=== PATIENT | male | born 1970 | race Caucasian/White ===

== ENCOUNTER 2018-11-30 15:23 | Emergency (ER) | payer BC, OTHER ==
[2018-11-30] MEDS ORDERED: Sodium Chloride 0.9% 10 ML Syringe FLUSH PRN (16:17)
[2018-11-30] MEDS ORDERED: Ampicillin/Sulbactam Na 3 GM Vial IV ONE (16:19)
[2018-11-30 17:15] LABS: CHLORIDE,CL 102 mmol/L (98-107); SODIUM,NA 139 mmol/L (136-145)
[2018-11-30 17:19] LABS: ANION GAP 14.6 mmol/L (10-20)
--- NOTE | 2018-12-01 07:23 | EDM.PDOC ---
ED HPI GENERAL MEDICAL PROBLEM - General Chief Complaint: Skin Complaint Time Seen by Provider: 11/30/18 15:23 Source of Information: Reports: Patient History Limitations: Reports: No Limitations - History of Present Illness INITIAL COMMENTS - FREE TEXT/NARRATIVE: PtMichelle presents to ER with complaints of erythema to nose and to area under R eye. States that he has had this for several days but it has gotten worse. denies any eye pain or irritation. No difficulty with rolling the eyes. He thinks that the cellulitis started in this nose from an "ingrown hair" he was attempting to pull out. No fever or chills. No chest pain or shortness of breath. Denies any headache. Onset Date: 11/28/18 Location: Reports: Face Quality: Reports: Burning - Related Data Allergies Allergy/AdvReac Type Severity Reaction Status Date / Time No Known Drug Allergies Allergy Other Verified 11/30/18 15:59 Home Meds: Home Meds . [No Known Home Meds] 04/05/14 [History] Past Medical History - Past Health History Medical/Surgical History: Denies Medical/Surgical History Cardiovascular History: Reports: High Cholesterol, Hypertension Social & Family History - Tobacco Use Smoking Status *Q: Unknown Ever Smoked ED ROS GENERAL - Review of Systems Review Of Systems: See Below Constitutional: Reports: No Symptoms HEENT: Reports: Other (erythema noted to nose extending to R maxillary area. No discharge noted. EOMI. No entrapment noted.) Respiratory: Reports: No Symptoms Cardiovascular: Reports: No Symptoms Endocrine: Reports: No Symptoms GI/Abdominal: Reports: No Symptoms : Reports: No Symptoms Musculoskeletal: Reports: No Symptoms Skin: Reports: Rash, Erythema Neurological: Reports: No Symptoms Psychiatric: Reports: No Symptoms Hematologic/Lymphatic: Reports: No Symptoms Immunologic: Reports: No Symptoms ED EXAM, SKIN/RASH Exam: See Below Exam Limited By: No Limitations General Appearance: Alert, WD/WN, No Apparent Distress Eye Exam: Bilateral Eye: EOMI, Normal Fundi, Normal Inspection, PERRL Ears: Normal External Exam, Normal Canal, Hearing Grossly Normal, Normal TMs Nose: Normal Mucosa, No Blood, Nasal Tenderness, Other (erythema across nose into R maxillary area) Throat/Mouth: Normal Inspection, Normal Lips, Normal Teeth, Normal Gums, Normal Oropharynx, Normal Voice, No Airway Compromise Head: Atraumatic, Normocephalic Neck: Normal Inspection, Supple, Non-Tender, Full Range of Motion Respiratory/Chest: No Respiratory Distress, Lungs Clear, Normal Breath Sounds, No Accessory Muscle Use, Chest Non-Tender Cardiovascular: Normal Peripheral Pulses, Regular Rate, Rhythm, No Edema, No Gallop, No JVD, No Murmur, No Rub Peripheral Pulses: 4+: Radial (R) Extremities: Normal Inspection, Normal Range of Motion, Non-Tender, No Pedal Edema, Normal Capillary Refill Neurological: Alert, Oriented, CN II-XII Intact, Normal Cognition, Normal Gait, Normal Reflexes, No Motor/Sensory Deficits Skin: Warm, Dry, Erythema (see above.) Course - Vital Signs Last Recorded V/S: Last Vital Signs Temp 37.2 C 11/30/18 15:30 Pulse 81 11/30/18 15:30 Resp 18 11/30/18 15:30 BP 104/54 L 11/30/18 15:30 Pulse Ox 96 11/30/18 15:30 - Orders/Labs/Meds Orders: Active Orders 24 hr Category Date Time Status Intake and Output [RC] QSHIFT Care 11/30/18 16:17 Active Peripheral IV Insertion Adult [OM.PC] Routine Oth 11/30/18 16:18 Ordered Labs: Laboratory Tests 11/30/18 11/30/18 Range/Units 16:45 16:45 WBC 8.0 (4.0-10.0) x10^3/uL RBC 5.04 (4.5-6.0) x10^6/uL Hgb 15.4 (14.0-18.0) g/dL Hct 45.6 (40.0-52.0) % MCV 90.5 (78.0-93.0) fL MCH 30.6 (26.0-32.0) pg MCHC 33.8 (32.0-36.0) g/dL RDW Coeff of Victor Manuel 13.3 (10.0-15.0) % Plt Count 252 (130-400) x10^3/uL Neut % (Auto) 66.8 (50.0-80.0) % Lymph % (Auto) 20.0 L (25.0-50.0) % [place] % (Auto) 11.6 H (2.0-11.0) % Eos % (Auto) 1.3 (0.0-4.0) % Baso % (Auto) 0.3 (0.2-1.2) % Sodium 139 (136-145) mmol/L Potassium 3.6 (3.5-5.1) mmol/L Chloride 102 (98-107) mmol/L Carbon Dioxide 26 (21-32) mmol/L Anion Gap 14.6 (10-20) mmol/L BUN 16 (7-18) mg/dL Creatinine 0.9 (0.70-1.30) mg/dL Est Cr Clr Drug Dosing TNP Estimated GFR (MDRD) > 60 Glucose 150 H (74-106) mg/dL Calcium 8.7 (8.5-10.1) mg/dL Corrected Calcium 9.42 (8.5-10.1) mg/dL Total Bilirubin 0.4 (0.2-1.0) mg/dL AST 29 (15-37) U/L ALT 46 (16-63) U/L Alkaline Phosphatase 101 (46-116) U/L C-Reactive Protein 5.2 H (<=0.9) mg/dL Total Protein 7.1 (6.4-8.2) g/dL Albumin 3.1 L (3.4-5.0) g/dL Globulin 4.0 Albumin/Globulin Ratio 0.78 Meds: Medications Discontinued Medications Generic Name Dose Route Start Last Admin Trade Name Freq PRN Reason Stop Dose Admin Ampicillin Sodium/Sulbactam Sodium 3 gm 11/30/18 16:19 11/30/18 16:33 Unasyn IV 11/30/18 16:20 3 gm ONETIME ONE Administration Sodium Chloride 10 ml 11/30/18 16:17 11/30/18 16:33 Saline Flush FLUSH 10 ml ASDIRECTED PRN Administration Keep Vein Open Departure - Departure Time of Disposition: 17:33 Disposition: Home, Self-Care 01 Condition: Good Clinical Impression: Cellulitis - Discharge Information Instructions: Cellulitis, Adult Referrals: Timothy Suarez MD [Primary Care Provider] - Forms: ED Department Discharge Additional Instructions: Augmentin 875mg twice daily for 10 days Return if fever, chills, inability to roll or move eye. Follow-up in clinic in 5-7 days for recheck. - My Orders Last 24 Hours: My Active Orders 11/30/18 16:17 Intake and Output [RC] QSHIFT 11/30/18 16:18 Peripheral IV Insertion Adult [OM.PC] Routine - Assessment/Plan Last 24 Hours: My Active Orders 11/30/18 16:17 Intake and Output [RC] QSHIFT 11/30/18 16:18 Peripheral IV Insertion Adult [OM.PC] Routine Plan: He was given a dose of Unasyn in ER. Augmentin 875mg twice daily for 10 days Return if fever, chills, inability to roll or move eye. Follow-up in clinic in 5-7 days for recheck.
== END 2018-11-30 17:33 | disposition home or self-care (01) ==
LOC: VM.ED 15:23
DX: L03.211 Cellulitis of face (principal); E78.00 Pure hypercholesterolemia, unspecified; I10 Essential (primary) hypertension
CPT/HCPCS: 36415; 80053; 85025; 86140; 96374; 99283; J0295

== ENCOUNTER 2021-07-02 21:53 | Inpatient (IN) | payer OTHER ==
[2021-07-02] MEDS ORDERED: Aspirin 81 MG Tab.Chew PO ONE (22:00)
[2021-07-02] MEDS: Nitroglycerin 0.4 MG Tab.SL SL PRN ×2 (22:11→22:21)
[2021-07-02] MEDS ORDERED: Sodium Chloride 0.9% 1,000 ML IV SCH (22:15)
--- NOTE | 2021-07-02 22:22 | EDM.PDOC ---
ED HPI GENERAL MEDICAL PROBLEM - General Chief Complaint: Chest Pain Stated Complaint: CHEST PAIN Time Seen by Provider: 07/02/21 22:00 Source of Information: Reports: Patient, Family History Limitations: Reports: No Limitations - History of Present Illness INITIAL COMMENTS - FREE TEXT/NARRATIVE: Patient presents to the ED with chest pain that started an hour prior to arrival. He states it awoke him and is substernal, sharp pressure and 8/10. NO diaphoresis or nausea. Did not take anything for it and came to the hospital. Has a history of cardiomyopathy with global hypokinesis and low ejection fraction He was last seen in 2018, and is scheduled to be seen again. States he has been taking his medications without fail. No recent travel. no recent illness. Has not had covid, Did receive the second of his [employer] vaccines in the last several days. No denies any chest trauma He is a daily smoker and frequent user of marijuana, denies any other drug use. sometimes drinker. 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 He rested but the pain took 1 hour to resolve. Did not take anything for it. Harvey well until this evening. Onset: Today Onset Time: 21:00 Duration: Hour(s): Location: Reports: Chest Quality: Reports: Pressure, Sharp Severity: Moderate Improves with: Reports: Other (deep breath) Context: Reports: Other (sleeping) Associated Symptoms: Reports: Diaphoresis Chest Pain Score (Numeric/FACES): 7 - Related Data Allergies Allergy/AdvReac Type Severity Reaction Status Date / Time No Known Drug Allergies Allergy Other Verified 11/30/18 15:59 Home Meds: Home Meds . [No Known Home Meds] 04/05/14 [History] Past Medical History - Past Health History Medical/Surgical History: Denies Medical/Surgical History Cardiovascular History: Reports: Cardiomyopathy, Heart Failure, High Cholesterol, Hypertension, Other (See Below) (low ejection fraction ( 20%) and global hypokinesis on echocardiogram 2017) - Past Surgical History Cardiovascular Surgical History: Reports: Other (See Below) (heart cath 2015, no stents placed) Musculoskeletal Surgical History: Reports: ORIF (right ankle) Social & Family History - Tobacco Use Tobacco Use Status *Q: Current Every Day Tobacco User Tobacco Use Within Last Twelve Months: Cigarettes - Alcohol Use Alcohol Use History: Yes Alcohol Use Frequency: Socially - Recreational Drug Use Recreational Drug Use: Yes Drug Use in Last 12 Months: Yes Recreational Drug Type: Reports: Marijuana/Hashish Recreational Drug Use Frequency: Weekly ED ROS GENERAL - Review of Systems Review Of Systems: See Below Constitutional: Reports: Diaphoresis. Denies: Fever, Chills, Malaise, Decreased Appetite HEENT: Reports: No Symptoms. Denies: Hearing Loss, Rhinitis, Sinus Problem, Throat Pain Respiratory: Reports: No Symptoms. Denies: Shortness of Breath, Wheezing, Pleuritic Chest Pain Cardiovascular: Reports: Chest Pain. Denies: Blood Pressure Problem, Claudication, Dyspnea on Exertion, Edema GI/Abdominal: Reports: No Symptoms. Denies: Abdominal Pain, Black Stool, Diarrhea, Flatus, Nausea, Vomiting : Reports: No Symptoms. Denies: Dysuria, Frequency Musculoskeletal: Reports: No Symptoms Skin: Reports: No Symptoms. Denies: Rash Neurological: Reports: No Symptoms. Denies: Confusion Psychiatric: Reports: No Symptoms ED EXAM, GENERAL - Physical Exam Exam: See Below Exam Limited By: No Limitations General Appearance: Alert, WD/WN, Mild Distress Eye Exam: Bilateral Eye: EOMI, Normal Inspection, PERRL Ears: Normal External Exam Nose: Normal Inspection, Normal Mucosa, No Blood Throat/Mouth: Normal Inspection, Normal Lips, Normal Teeth, Normal Voice, No Airway Compromise Head: Atraumatic Neck: Normal Inspection Respiratory/Chest: No Respiratory Distress, Lungs Clear, Normal Breath Sounds, No Accessory Muscle Use, Chest Non-Tender Cardiovascular: Tachycardia, Other (normal rhythm) GI/Abdominal: Normal Bowel Sounds, Soft, Non-Tender Extremities: Normal Inspection, Normal Range of Motion, Non-Tender, No Pedal Edema Neurological: Alert, Oriented, CN II-XII Intact Skin Exam: Diaphoretic #1 Interpretation EKG Date: 07/02/21 Time: 21:48 Rhythm: NSR Rate (Beats/Min): 107 [place]: Normal P-Wave: Present QRS: Normal ST-T: Other (nonspecific T in I, AVL V5-6 with slight depression) Comparison: NA - No Prior EKG EKG Interpretation Comments: LVH #2 Interpretation EKG Date: 07/02/21 Time: 23:05 Rhythm: NSR Rate (Beats/Min): 108 [place]: Normal P-Wave: Present QRS: Normal ST-T: Other (unchanged from previous) Comparison: Change From Previous EKG (incomplete left bundle branch block) #3 Interpretation EKG Date: 07/03/21 Time: 00:23 Rhythm: NSR Rate (Beats/Min): 108 [place]: Normal P-Wave: Present Comparison: No Change Course - Vital Signs Last Recorded V/S: Last Vital Signs Temp 35.6 C L 07/02/21 21:55 Pulse 103 H 07/02/21 21:55 Resp 22 H 07/02/21 21:55 BP 135/105 H 07/02/21 22:21 Pulse Ox 100 07/02/21 21:55 - Orders/Labs/Meds Orders: Active Orders 24 hr Category Date Time Status Admission Status [Patient Status] [ADT] Routine ADT 07/03/21 01:09 Active Cardiac Monitoring [RC] . DIRECTED Care 07/02/21 22:00 Active EKG 12 Lead [EKG Documentation Completion] [RC] STAT Care 07/02/21 23:09 Active EKG 12 Lead [EKG Documentation Completion] [RC] STAT Care 07/03/21 00:15 Active EKG Documentation Completion [RC] STAT Care 07/02/21 22:00 Active Chest 1V Frontal [CR] Stat Exams 07/02/21 22:31 Ordered Heparin Sodium/0.45% NaCl [Heparin 25,000 Units in 1/2 Med 07/02/21 23:00 Active NS 500 ML] 25,000 units in 500 ml IV TITRATE Morphine Med 07/02/21 23:10 Active 4 mg IVPUSH Q2H PRN Nitroglycerin [Nitrostat] Med 07/02/21 22:00 Active 0.4 mg SL Q5M PRN Nitroglycerin/D5W [Nitroglycerin 25 MG/D5W 250 ML] Med 07/02/21 23:00 Active 25 mg in 250 ml IV TITRATE Sodium Chloride 0.9% [Normal Saline] 1,000 ml Med 07/02/21 22:15 Active IV ASDIRECTED Medication Orders Sodium Chloride (Normal Saline) 1,000 mls @ 999 mls/hr IV ASDIRECTED MAURICIO Last Admin: 07/02/21 22:15 Dose: 999 mls/hr Documented by: ANU Nitroglycerin/Dextrose (Nitroglycerin 25 Mg/D5w 250 Ml) 25 mg in 250 mls @ 6 mls/hr IV TITRATE MAURICIO; Protocol Last Admin: 07/02/21 23:01 Dose: 10 mcg/min, 6 mls/hr Documented by: ANU Heparin Sodium/Sodium Chloride (Heparin 25,000 Units In 1/2 Ns 500 Ml) 25,000 units in 500 mls @ 20 mls/hr IV TITRATE MAURICIO; Protocol Last Admin: 07/02/21 23:33 Dose: 1,000 units/hr, 20 mls/hr Documented by: ANU Cosigned by: LORENZO Morphine Sulfate (Morphine 4 Mg/Ml Syringe) 4 mg IVPUSH Q2H PRN PRN Reason: Pain Last Admin: 07/02/21 23:24 Dose: 4 mg Documented by: ANU Nitroglycerin (Nitroglycerin 0.4 Mg Tab.Sl) 0.4 mg SL Q5M PRN PRN Reason: Chest Pain Stop: 07/03/21 22:00 Last Admin: 07/02/21 22:21 Dose: 0.4 mg Documented by: Admin: 07/02/21 22:11 Dose: 0.4 mg Documented by: ANU Labs: Laboratory Tests 07/02/21 07/02/21 07/02/21 Range/Units 22:10 22:10 22:10 WBC 11.7 H (4.0-10.0) x10^3/uL RBC 5.75 (4.5-6.0) x10^6/uL Hgb 18.0 (14.0-18.0) g/dL Hct 50.8 (40.0-52.0) % MCV 88.3 (78.0-93.0) fL MCH 31.3 (26.0-32.0) pg MCHC 35.4 (32.0-36.0) g/dL RDW Coeff of Victor Manuel 14.1 (10.0-15.0) % Plt Count 308 (130-400) x10^3/uL Immature Gran % (Auto) 0.20 (0.00-0.43) % Neut % (Auto) 69.1 (50.0-80.0) % Lymph % (Auto) 23.2 L (25.0-50.0) % [place] % (Auto) 6.3 (2.0-11.0) % Eos % (Auto) 1.0 (0.0-4.0) % Baso % (Auto) 0.2 (0.2-1.2) % Neut # (Auto) 8.1 H (1.8-7.7) x10^3/uL Lymph # (Auto) 2.7 (1.0-4.8) x10^3/uL [place] # (Auto) 0.7 (0.0-0.8) x10^3/uL Eos # (Auto) 0.1 (0.0-0.5) x10^3/uL Baso # (Auto) 0.0 (0.0-0.2) x10^3/uL Immature Gran # (Auto) 0.02 (0.00-0.07) x10^3/uL PT (9.9-12.5) SEC INR (2.0-3.5) APTT (25.6-32.8) SEC D-Dimer, Quantitative 0.36 (<=0.58) mg/LFEU Sodium 139 (136-145) mmol/L Potassium 4.6 (3.5-5.1) mmol/L Chloride 104 (98-107) mmol/L Carbon Dioxide 29 (21-32) mmol/L Anion Gap 10.6 (5-15) mmol/L BUN 18 (7-18) mg/dL Creatinine 1.1 (0.70-1.30) mg/dL Est Cr Clr Drug Dosing TNP Estimated GFR (MDRD) > 60 Glucose 130 H (70-99) mg/dL Calcium 8.7 (8.5-10.1) mg/dL Corrected Calcium 9.3 (8.5-10.1) mg/dL Total Bilirubin 0.4 (0.2-1.0) mg/dL AST 35 (15-37) U/L ALT 48 (16-63) U/L Alkaline Phosphatase 96 (46-116) U/L Troponin I High Sens 226 H* (<=76) ng/L NT-Pro-B Natriuret Pep 774 H (<=125) pg/mL Total Protein 7.2 (6.4-8.2) g/dL Albumin 3.2 L (3.4-5.0) g/dL Globulin 4.0 Albumin/Globulin Ratio 0.80 SARS CoV-2 RNA Rapid MARAL (NEGATIVE) 07/02/21 07/02/21 07/02/21 Range/Units 22:10 22:10 23:25 WBC (4.0-10.0) x10^3/uL RBC (4.5-6.0) x10^6/uL Hgb (14.0-18.0) g/dL Hct (40.0-52.0) % MCV (78.0-93.0) fL MCH (26.0-32.0) pg MCHC (32.0-36.0) g/dL RDW Coeff of Victor Manuel (10.0-15.0) % Plt Count (130-400) x10^3/uL Immature Gran % (Auto) (0.00-0.43) % Neut % (Auto) (50.0-80.0) % Lymph % (Auto) (25.0-50.0) % [place] % (Auto) (2.0-11.0) % Eos % (Auto) (0.0-4.0) % Baso % (Auto) (0.2-1.2) % Neut # (Auto) (1.8-7.7) x10^3/uL Lymph # (Auto) (1.0-4.8) x10^3/uL [place] # (Auto) (0.0-0.8) x10^3/uL Eos # (Auto) (0.0-0.5) x10^3/uL Baso # (Auto) (0.0-0.2) x10^3/uL Immature Gran # (Auto) (0.00-0.07) x10^3/uL PT 11.0 (9.9-12.5) SEC INR 1.0 L (2.0-3.5) APTT 24.4 L (25.6-32.8) SEC D-Dimer, Quantitative (<=0.58) mg/LFEU Sodium (136-145) mmol/L Potassium (3.5-5.1) mmol/L Chloride (98-107) mmol/L Carbon Dioxide (21-32) mmol/L Anion Gap (5-15) mmol/L BUN (7-18) mg/dL Creatinine (0.70-1.30) mg/dL Est Cr Clr Drug Dosing Estimated GFR (MDRD) Glucose (70-99) mg/dL Calcium (8.5-10.1) mg/dL Corrected Calcium (8.5-10.1) mg/dL Total Bilirubin (0.2-1.0) mg/dL AST (15-37) U/L ALT (16-63) U/L Alkaline Phosphatase (46-116) U/L Troponin I High Sens (<=76) ng/L NT-Pro-B Natriuret Pep (<=125) pg/mL Total Protein (6.4-8.2) g/dL Albumin (3.4-5.0) g/dL Globulin Albumin/Globulin Ratio SARS CoV-2 RNA Rapid MARAL Negative (NEGATIVE) 07/03/21 Range/Units 00:28 WBC (4.0-10.0) x10^3/uL RBC (4.5-6.0) x10^6/uL Hgb (14.0-18.0) g/dL Hct (40.0-52.0) % MCV (78.0-93.0) fL MCH (26.0-32.0) pg MCHC (32.0-36.0) g/dL RDW Coeff of Victor Manuel (10.0-15.0) % Plt Count (130-400) x10^3/uL Immature Gran % (Auto) (0.00-0.43) % Neut % (Auto) (50.0-80.0) % Lymph % (Auto) (25.0-50.0) % [place] % (Auto) (2.0-11.0) % Eos % (Auto) (0.0-4.0) % Baso % (Auto) (0.2-1.2) % Neut # (Auto) (1.8-7.7) x10^3/uL Lymph # (Auto) (1.0-4.8) x10^3/uL [place] # (Auto) (0.0-0.8) x10^3/uL Eos # (Auto) (0.0-0.5) x10^3/uL Baso # (Auto) (0.0-0.2) x10^3/uL Immature Gran # (Auto) (0.00-0.07) x10^3/uL PT (9.9-12.5) SEC INR (2.0-3.5) APTT (25.6-32.8) SEC D-Dimer, Quantitative (<=0.58) mg/LFEU Sodium (136-145) mmol/L Potassium (3.5-5.1) mmol/L Chloride (98-107) mmol/L Carbon Dioxide (21-32) mmol/L Anion Gap (5-15) mmol/L BUN (7-18) mg/dL Creatinine (0.70-1.30) mg/dL Est Cr Clr Drug Dosing Estimated GFR (MDRD) Glucose (70-99) mg/dL Calcium (8.5-10.1) mg/dL Corrected Calcium (8.5-10.1) mg/dL Total Bilirubin (0.2-1.0) mg/dL AST (15-37) U/L ALT (16-63) U/L Alkaline Phosphatase (46-116) U/L Troponin I High Sens 4851 H* (<=76) ng/L NT-Pro-B Natriuret Pep (<=125) pg/mL Total Protein (6.4-8.2) g/dL Albumin (3.4-5.0) g/dL Globulin Albumin/Globulin Ratio SARS CoV-2 RNA Rapid MARAL (NEGATIVE) Meds: Medications Generic Name Dose Route Start Last Admin Trade Name Codyq PRN Reason Stop Dose Admin Sodium Chloride 1,000 mls @ 999 mls/hr 07/02/21 22:15 07/02/21 22:15 Normal Saline IV 999 mls/hr ASDIRECTED MAURICIO Administration Nitroglycerin/Dextrose 25 mg in 250 mls @ 6 mls/hr 07/02/21 23:00 07/02/21 23:01 Nitroglycerin 25 Mg/D5w 250 Ml IV 10 mcg/min TITRATE MAURICIO 6 mls/hr Administration Protocol 10 MCG/MIN Heparin Sodium/Sodium Chloride 25,000 units in 500 mls @ 20 mls/hr 07/02/21 23:00 07/02/21 23:33 Heparin 25,000 Units In 1/2 Ns 500 Ml IV 1,000 units/hr TITRATE MAURICIO 20 mls/hr Administration Protocol 1,000 UNITS/HR Morphine Sulfate 4 mg 07/02/21 23:10 07/02/21 23:24 Morphine 4 Mg/Ml Syringe IVPUSH 4 mg Q2H PRN Administration Pain Nitroglycerin 0.4 mg 07/02/21 22:00 07/02/21 22:21 Nitroglycerin 0.4 Mg Tab.Sl SL 07/03/21 22:00 0.4 mg Q5M PRN Administration Chest Pain Discontinued Medications Generic Name Dose Route Start Last Admin Trade Name Vladimri PRN Reason Stop Dose Admin Aspirin 324 mg 07/02/21 22:00 07/02/21 22:05 Aspirin 81 Mg Tab.Chew PO 07/02/21 22:01 324 mg ONETIME ONE Administration Heparin Sodium (Porcine) 4,000 units 07/02/21 22:56 07/02/21 23:11 Heparin Sodium 5,000 Units/Ml Vial IVPUSH 07/02/21 22:57 4,000 units .BOLUS ONE Administration - Radiology Interpretation Free Text/Narrative:: chest x-ray no acute findings interpreted by radiology - Re-Assessments/Exams Free Text/Narrative Re-Assessment/Exam: 07/02/21 22:40 Patient has a cardiac history with active chest pain and diaphoresis. Pain had happened two days ago also. Pain at it's worse 8/10, now 5/10. IV placed, normal saline bolus, aspirin 324 mg chewed, nitro glycerin 0.4 mg sublingual take pain to 2/10. Feeling better. Blood pressure still stable, but states it usually runs 110/90. Second nitro does not help pain, but stays at 2/10, blood pressure decreased. Portable chest reveals increased intravascular markings consistent with CHF> Patient states he has been getting good output from his 40 g of furosemide daily. Does not do daily weights, but denies overall weight change and no peripheral edema. 07/02/21 22:46 reviewed [facility] chart, has not been seen since 2018. last echo cardiogram in 2018 was with global hypokinesis and en ejection fracture of 20% 07/02/21 22:53 chest pain is back to 8/10, nitroglycerin drip will be started, awaiting labs. Minor EKG changes, no stemi 07/02/21 23:10 call to [facility], no bed unless STEMI, call to [facility], faxed EKG with cardiology to look at and possible acceptance. patient continues to be diaphoretic, active chest pain, nitro is infusing, heparin bolus given. morphine offered Is s Code level 1 07/02/21 23:34 call to [facility] after cardiology will not accept patient. NO beds in the State unless a STEMI. repeat ekg without STEMi, morphing into a incomplete left bundle branch block. Pain is controlled on 10 barbara of nitroglycerin and 4 mg of morphine IVP. down to the 2. repeat trop and EKG at 00:15 07/03/21 00:42 call received from [facility] in [place], Dr. Wagner, hospitalist added to wait list for PCU bed. They do not have a bed for him and feel he requires more than a medical bed., 07/03/21 01:33 Patient is feeling and looking much better . TRoponin marked elevated at 4800. Will admit , continue nitro and heparin drips. morphine as needed for pain, Oxygen to maintains sats especially with sleeping. Needs cardiology follow up. Departure - Departure Time of Disposition: 01:35 Disposition: Admitted As Inpatient 68 Clinical Impression: Acute myocardial infarction, CHF (congestive heart failure), Cardiomyopathy Referrals: PCP,None [Primary Care Provider] - Forms: ED Department Discharge Sepsis Event Note (ED) - Focused Exam Vital Signs: Vital Signs Temp Pulse Resp BP BP Pulse Ox 07/02/21 22:21 135/105 H 07/02/21 22:11 147/111 H 07/02/21 21:55 35.6 C L 103 H 22 H 102/71 100 - My Orders Last 24 Hours: My Active Orders 07/02/21 22:00 Cardiac Monitoring [RC] . DIRECTED EKG Documentation Completion [RC] STAT Nitroglycerin [Nitrostat] 0.4 mg SL Q5M PRN 07/02/21 22:15 Sodium Chloride 0.9% [Normal Saline] 1,000 ml IV ASDIRECTED 07/02/21 22:31 Chest 1V Frontal [CR] Stat 07/02/21 23:00 Heparin Sodium/0.45% NaCl [Heparin 25,000 Units in 1/2 NS 500 ML] 25,000 units in 500 ml IV TITRATE Nitroglycerin/D5W [Nitroglycerin 25 MG/D5W 250 ML] 25 mg in 250 ml IV TITRATE 07/02/21 23:09 EKG 12 Lead [EKG Documentation Completion] [RC] STAT 07/02/21 23:10 Morphine 4 mg IVPUSH Q2H PRN 07/03/21 00:15 EKG 12 Lead [EKG Documentation Completion] [RC] STAT 07/03/21 01:09 Admission Status [Patient Status] [ADT] Routine - Assessment/Plan Last 24 Hours: My Active Orders 07/02/21 22:00 Cardiac Monitoring [RC] . DIRECTED EKG Documentation Completion [RC] STAT Nitroglycerin [Nitrostat] 0.4 mg SL Q5M PRN 07/02/21 22:15 Sodium Chloride 0.9% [Normal Saline] 1,000 ml IV ASDIRECTED 07/02/21 22:31 Chest 1V Frontal [CR] Stat 07/02/21 23:00 Heparin Sodium/0.45% NaCl [Heparin 25,000 Units in 1/2 NS 500 ML] 25,000 units in 500 ml IV TITRATE Nitroglycerin/D5W [Nitroglycerin 25 MG/D5W 250 ML] 25 mg in 250 ml IV TITRATE 07/02/21 23:09 EKG 12 Lead [EKG Documentation Completion] [RC] STAT 07/02/21 23:10 Morphine 4 mg IVPUSH Q2H PRN 07/03/21 00:15 EKG 12 Lead [EKG Documentation Completion] [RC] STAT 07/03/21 01:09 Admission Status [Patient Status] [ADT] Routine
[2021-07-02 22:52] LABS: CHLORIDE,CL 104 mmol/L (98-107); SODIUM,NA 139 mmol/L (136-145)
[2021-07-02 22:55] LABS: ANION GAP 10.6 mmol/L (5-15)
[2021-07-02] MEDS ORDERED: Heparin Sodium 5,000 Units/ML Vial IVPUSH ONE (22:56)
[2021-07-02] MEDS ORDERED: Nitroglycerin/D5W 25 MG/250 ML BOTTLE IV SCH (23:00)
[2021-07-02] MEDS ORDERED: Morphine 4 MG/ML Syringe IVPUSH PRN (23:10)
[2021-07-02] MEDS: Heparin Sodium/0.45% NaCl 25,000 UNITS/500 ML BAG IV SCH (23:33)
[2021-07-03] MEDS ORDERED: Acetaminophen 325 MG Tab PO PRN (02:15)
[2021-07-03] MEDS ORDERED: Ondansetron 4 MG/2 ML SDV IV PRN (02:15)
[2021-07-03] MEDS ORDERED: Ondansetron 4 MG Tab.DIS PO PRN (02:15)
[2021-07-03] MEDS ORDERED: Docusate Sodium 100 MG Cap PO PRN (02:15)
[2021-07-03] MEDS ORDERED: Morphine 4 MG/ML Syringe IVPUSH PRN (02:35)
[2021-07-03] MEDS: Nicotine 14 MG/24 Hr Patch TRDERM SCH (08:20)
[2021-07-03] MEDS: Carvedilol 25 MG Tab PO SCH ×2 (08:20→18:59)
[2021-07-03] MEDS: ENTRESTO PO SCH ×2 (08:20→20:17)
[2021-07-03] MEDS: Furosemide 40 MG Tab PO SCH (08:20)
[2021-07-03] MEDS: Heparin Sodium 5,000 Units/ML Vial IVPUSH PRN ×3 (10:11→20:09)
--- NOTE | 2021-07-03 10:28 | PCM.PN ---
- General Info Date of Service: 07/03/21 Admission Dx/Problem (Free Text): NSTEMI Subjective Update: Patient was admitted overnight for NSTEMI with a history of cardiomyopathy with global hypokinesis and low ejection fraction. He came in last evening with this. Is now without pain . Has had increased troponins, on a nitroglycerin drip and heparin drip with morphine IVP for pain. Awaiting transfer to tertiary facility for cardiac consult. 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 medical management at this point, - Review of Systems General: Reports: No Symptoms, Other (patient does have intermittant diaphoresis not associated) HEENT: Reports: No Symptoms Pulmonary: Reports: No Symptoms Cardiovascular: Reports: Chest Pain (resolved this morning now). Denies: Dyspnea on Exertion, Orthopnea, Edema Gastrointestinal: Reports: No Symptoms Genitourinary: Reports: No Symptoms Musculoskeletal: Reports: No Symptoms Skin: Reports: No Symptoms Neurological: Reports: No Symptoms Psychiatric: Reports: No Symptoms - Patient Data Vitals - Most Recent: Last Vital Signs Temp 36.5 C 07/03/21 02:08 Pulse 101 H 07/03/21 08:20 Resp 18 07/03/21 06:00 BP 139/102 H 07/03/21 08:20 Pulse Ox 92 L 07/03/21 06:00 note, patient has a blood pressure usually of 110/90 and states he has tachycardia at baseline of 100 Weight - Most Recent: 127.006 kg I&O - Last 24 Hours: Intake & Output 07/02/21 07/03/21 07/03/21 22:59 06:59 14:59 Intake Total 300 120 Balance 300 120 Imaging Impressions - Last 24 Hours: negative one view chest x-ray in ED Lab Results Last 24 Hours: Laboratory Results - last 24 hr 07/02/21 07/02/21 07/02/21 Range/Units 22:10 22:10 22:10 WBC 11.7 H (4.0-10.0) x10^3/uL RBC 5.75 (4.5-6.0) x10^6/uL Hgb 18.0 (14.0-18.0) g/dL Hct 50.8 (40.0-52.0) % MCV 88.3 (78.0-93.0) fL MCH 31.3 (26.0-32.0) pg MCHC 35.4 (32.0-36.0) g/dL RDW Coeff of Victor Manuel 14.1 (10.0-15.0) % Plt Count 308 (130-400) x10^3/uL Immature Gran % (Auto) 0.20 (0.00-0.43) % Neut % (Auto) 69.1 (50.0-80.0) % Lymph % (Auto) 23.2 L (25.0-50.0) % Sac % (Auto) 6.3 (2.0-11.0) % Eos % (Auto) 1.0 (0.0-4.0) % Baso % (Auto) 0.2 (0.2-1.2) % Neut # (Auto) 8.1 H (1.8-7.7) x10^3/uL Lymph # (Auto) 2.7 (1.0-4.8) x10^3/uL Sac # (Auto) 0.7 (0.0-0.8) x10^3/uL Eos # (Auto) 0.1 (0.0-0.5) x10^3/uL Baso # (Auto) 0.0 (0.0-0.2) x10^3/uL Immature Gran # (Auto) 0.02 (0.00-0.07) x10^3/uL PT (9.9-12.5) SEC INR (2.0-3.5) APTT (25.6-32.8) SEC D-Dimer, Quantitative 0.36 (<=0.58) mg/LFEU Sodium 139 (136-145) mmol/L Potassium 4.6 (3.5-5.1) mmol/L Chloride 104 (98-107) mmol/L Carbon Dioxide 29 (21-32) mmol/L Anion Gap 10.6 (5-15) mmol/L BUN 18 (7-18) mg/dL Creatinine 1.1 (0.70-1.30) mg/dL Est Cr Clr Drug Dosing TNP Estimated GFR (MDRD) > 60 Glucose 130 H (70-99) mg/dL Calcium 8.7 (8.5-10.1) mg/dL Corrected Calcium 9.3 (8.5-10.1) mg/dL Total Bilirubin 0.4 (0.2-1.0) mg/dL AST 35 (15-37) U/L ALT 48 (16-63) U/L Alkaline Phosphatase 96 (46-116) U/L Troponin I High Sens 226 H* (<=76) ng/L NT-Pro-B Natriuret Pep 774 H (<=125) pg/mL Total Protein 7.2 (6.4-8.2) g/dL Albumin 3.2 L (3.4-5.0) g/dL Globulin 4.0 Albumin/Globulin Ratio 0.80 SARS CoV-2 RNA Rapid MARAL (NEGATIVE) 07/02/21 07/02/21 07/02/21 Range/Units 22:10 22:10 23:25 WBC (4.0-10.0) x10^3/uL RBC (4.5-6.0) x10^6/uL Hgb (14.0-18.0) g/dL Hct (40.0-52.0) % MCV (78.0-93.0) fL MCH (26.0-32.0) pg MCHC (32.0-36.0) g/dL RDW Coeff of Victor Manuel (10.0-15.0) % Plt Count (130-400) x10^3/uL Immature Gran % (Auto) (0.00-0.43) % Neut % (Auto) (50.0-80.0) % Lymph % (Auto) (25.0-50.0) % Sac % (Auto) (2.0-11.0) % Eos % (Auto) (0.0-4.0) % Baso % (Auto) (0.2-1.2) % Neut # (Auto) (1.8-7.7) x10^3/uL Lymph # (Auto) (1.0-4.8) x10^3/uL Sac # (Auto) (0.0-0.8) x10^3/uL Eos # (Auto) (0.0-0.5) x10^3/uL Baso # (Auto) (0.0-0.2) x10^3/uL Immature Gran # (Auto) (0.00-0.07) x10^3/uL PT 11.0 (9.9-12.5) SEC INR 1.0 L (2.0-3.5) APTT 24.4 L (25.6-32.8) SEC D-Dimer, Quantitative (<=0.58) mg/LFEU Sodium (136-145) mmol/L Potassium (3.5-5.1) mmol/L Chloride (98-107) mmol/L Carbon Dioxide (21-32) mmol/L Anion Gap (5-15) mmol/L BUN (7-18) mg/dL Creatinine (0.70-1.30) mg/dL Est Cr Clr Drug Dosing Estimated GFR (MDRD) Glucose (70-99) mg/dL Calcium (8.5-10.1) mg/dL Corrected Calcium (8.5-10.1) mg/dL Total Bilirubin (0.2-1.0) mg/dL AST (15-37) U/L ALT (16-63) U/L Alkaline Phosphatase (46-116) U/L Troponin I High Sens (<=76) ng/L NT-Pro-B Natriuret Pep (<=125) pg/mL Total Protein (6.4-8.2) g/dL Albumin (3.4-5.0) g/dL Globulin Albumin/Globulin Ratio SARS CoV-2 RNA Rapid MARAL Negative (NEGATIVE) 07/03/21 07/03/21 07/03/21 Range/Units 00:28 06:45 06:45 WBC 10.1 H (4.0-10.0) x10^3/uL RBC 5.49 (4.5-6.0) x10^6/uL Hgb 16.9 (14.0-18.0) g/dL Hct 48.2 (40.0-52.0) % MCV 87.8 (78.0-93.0) fL MCH 30.8 (26.0-32.0) pg MCHC 35.1 (32.0-36.0) g/dL RDW Coeff of Victor Manuel 14.3 (10.0-15.0) % Plt Count 276 (130-400) x10^3/uL Immature Gran % (Auto) (0.00-0.43) % Neut % (Auto) (50.0-80.0) % Lymph % (Auto) (25.0-50.0) % Sac % (Auto) (2.0-11.0) % Eos % (Auto) (0.0-4.0) % Baso % (Auto) (0.2-1.2) % Neut # (Auto) (1.8-7.7) x10^3/uL Lymph # (Auto) (1.0-4.8) x10^3/uL Sac # (Auto) (0.0-0.8) x10^3/uL Eos # (Auto) (0.0-0.5) x10^3/uL Baso # (Auto) (0.0-0.2) x10^3/uL Immature Gran # (Auto) (0.00-0.07) x10^3/uL PT (9.9-12.5) SEC INR (2.0-3.5) APTT (25.6-32.8) SEC D-Dimer, Quantitative (<=0.58) mg/LFEU Sodium (136-145) mmol/L Potassium (3.5-5.1) mmol/L Chloride (98-107) mmol/L Carbon Dioxide (21-32) mmol/L Anion Gap (5-15) mmol/L BUN (7-18) mg/dL Creatinine (0.70-1.30) mg/dL Est Cr Clr Drug Dosing Estimated GFR (MDRD) Glucose (70-99) mg/dL Calcium (8.5-10.1) mg/dL Corrected Calcium (8.5-10.1) mg/dL Total Bilirubin (0.2-1.0) mg/dL AST (15-37) U/L ALT (16-63) U/L Alkaline Phosphatase (46-116) U/L Troponin I High Sens 4851 H* 75461 H* (<=76) ng/L NT-Pro-B Natriuret Pep (<=125) pg/mL Total Protein (6.4-8.2) g/dL Albumin (3.4-5.0) g/dL Globulin Albumin/Globulin Ratio SARS CoV-2 RNA Rapid MARAL (NEGATIVE) 07/03/21 Range/Units 08:50 WBC (4.0-10.0) x10^3/uL RBC (4.5-6.0) x10^6/uL Hgb (14.0-18.0) g/dL Hct (40.0-52.0) % MCV (78.0-93.0) fL MCH (26.0-32.0) pg MCHC (32.0-36.0) g/dL RDW Coeff of Victor Manuel (10.0-15.0) % Plt Count (130-400) x10^3/uL Immature Gran % (Auto) (0.00-0.43) % Neut % (Auto) (50.0-80.0) % Lymph % (Auto) (25.0-50.0) % Sac % (Auto) (2.0-11.0) % Eos % (Auto) (0.0-4.0) % Baso % (Auto) (0.2-1.2) % Neut # (Auto) (1.8-7.7) x10^3/uL Lymph # (Auto) (1.0-4.8) x10^3/uL Sac # (Auto) (0.0-0.8) x10^3/uL Eos # (Auto) (0.0-0.5) x10^3/uL Baso # (Auto) (0.0-0.2) x10^3/uL Immature Gran # (Auto) (0.00-0.07) x10^3/uL PT (9.9-12.5) SEC INR (2.0-3.5) APTT 27.7 (25.6-32.8) SEC D-Dimer, Quantitative (<=0.58) mg/LFEU Sodium (136-145) mmol/L Potassium (3.5-5.1) mmol/L Chloride (98-107) mmol/L Carbon Dioxide (21-32) mmol/L Anion Gap (5-15) mmol/L BUN (7-18) mg/dL Creatinine (0.70-1.30) mg/dL Est Cr Clr Drug Dosing Estimated GFR (MDRD) Glucose (70-99) mg/dL Calcium (8.5-10.1) mg/dL Corrected Calcium (8.5-10.1) mg/dL Total Bilirubin (0.2-1.0) mg/dL AST (15-37) U/L ALT (16-63) U/L Alkaline Phosphatase (46-116) U/L Troponin I High Sens (<=76) ng/L NT-Pro-B Natriuret Pep (<=125) pg/mL Total Protein (6.4-8.2) g/dL Albumin (3.4-5.0) g/dL Globulin Albumin/Globulin Ratio SARS CoV-2 RNA Rapid MARAL (NEGATIVE) Med Orders - Current: Current Medications Acetaminophen (Acetaminophen 325 Mg Tab) 650 mg PO Q4H PRN PRN Reason: Pain (Mild 1-3)/fever Atorvastatin Calcium (Atorvastatin 10 Mg Tab) 20 mg PO BEDTIME MAURICIO Carvedilol (Carvedilol 25 Mg Tab) 25 mg PO BIDMEALS [facility] Last Admin: 07/03/21 08:20 Dose: 25 mg Documented by: Docusate Sodium (Docusate Sodium 100 Mg Cap) 100 mg PO BID PRN PRN Reason: Constipation Furosemide (Furosemide 40 Mg Tab) 40 mg PO DAILY [facility] Last Admin: 07/03/21 08:20 Dose: 40 mg Documented by: Heparin Sodium (Porcine) (Heparin Sodium 5,000 Units/Ml Vial) 0 units IVPUSH ASDIRECTED PRN PRN Reason: BOLUS, PER PROTOCOL Sodium Chloride (Normal Saline) 1,000 mls @ 999 mls/hr IV ASDIRECTED [facility] Last Admin: 07/02/21 22:15 Dose: 999 mls/hr Documented by: Nitroglycerin/Dextrose (Nitroglycerin 25 Mg/D5w 250 Ml) 25 mg in 250 mls @ 6 mls/hr IV TITRATE [facility]; Protocol Last Admin: 07/02/21 23:01 Dose: 10 mcg/min, 6 mls/hr Documented by: Heparin Sodium/Sodium Chloride (Heparin 25,000 Units In 1/2 Ns 500 Ml) 25,000 units in 500 mls @ 20 mls/hr IV TITRATE [facility]; Protocol Last Admin: 07/02/21 23:33 Dose: 1,000 units/hr, 20 mls/hr Documented by: Morphine Sulfate (Morphine 4 Mg/Ml Syringe) 4 mg IVPUSH Q1H PRN PRN Reason: Pain (severe 7-10) Nicotine (Nicotine 14 Mg/24 Hr Patch) 14 mg TRDERM DAILY [facility] Last Admin: 07/03/21 08:20 Dose: 14 mg Documented by: Nitroglycerin (Nitroglycerin 0.4 Mg Tab.Sl) 0.4 mg SL Q5M PRN PRN Reason: Chest Pain Stop: 07/03/21 22:00 Last Admin: 07/02/21 22:21 Dose: 0.4 mg Documented by: Escobar [id number] (Own Med) 1 each PO BID [facility] Last Admin: 07/03/21 08:20 Dose: 1 each Documented by: Ondansetron HCl (Ondansetron 4 Mg Tab.Dis) 4 mg PO Q4H PRN PRN Reason: nausea, able to take PO Ondansetron HCl (Ondansetron 4 Mg/2 Ml Sdv) 4 mg IV Q4H PRN PRN Reason: Nausea/Vomiting Discontinued Medications Aspirin (Aspirin 81 Mg Tab.Chew) 324 mg PO ONETIME ONE Stop: 07/02/21 22:01 Last Admin: 07/02/21 22:05 Dose: 324 mg Documented by: Heparin Sodium (Porcine) (Heparin Sodium 5,000 Units/Ml Vial) 4,000 units IVP [facility] .BOLUS ONE Stop: 07/02/21 22:57 Last Admin: 07/02/21 23:11 Dose: 4,000 units Documented by: Morphine Sulfate (Morphine 4 Mg/Ml Syringe) 4 mg IVPUSH Q2H PRN PRN Reason: Pain Last Admin: 07/02/21 23:24 Dose: 4 mg Documented by: - Exam Quality Assessment: Supplemental Oxygen (at nighttime, has apneic spells, does not wear c pap), DVT Prophylaxis General: Alert, Oriented HEENT: Pupils Equal, Pupils Reactive Neck: Supple Lungs: Clear to Auscultation, Normal Respiratory Effort Cardiovascular: Regular Rhythm, Tachycardia GI/Abdominal Exam: Normal Bowel Sounds, Soft Extremities: Normal Inspection, Normal Range of Motion, No Pedal Edema Skin: Warm, Other (intermittant diaphoresis, improved) Neurological: No New Focal Deficit Psy/Mental Status: Alert, Normal Affect, Normal Mood #4 Interpretation EKG Date: 07/03/21 Time: 08:25 Rhythm: NSR Rate (Beats/Min): 99 [place]: Normal P-Wave: Present QRS: Normal Comparison: Change From Previous EKG EKG Interpretation Comments: q wave 2-5 new - Patient Data Lab Results Last 24 hrs: Laboratory Results - last 24 hr 07/02/21 07/02/21 07/02/21 Range/Units 22:10 22:10 22:10 WBC 11.7 H (4.0-10.0) x10^3/uL RBC 5.75 (4.5-6.0) x10^6/uL Hgb 18.0 (14.0-18.0) g/dL Hct 50.8 (40.0-52.0) % MCV 88.3 (78.0-93.0) fL MCH 31.3 (26.0-32.0) pg MCHC 35.4 (32.0-36.0) g/dL RDW Coeff of Victor Manuel 14.1 (10.0-15.0) % Plt Count 308 (130-400) x10^3/uL Immature Gran % (Auto) 0.20 (0.00-0.43) % Neut % (Auto) 69.1 (50.0-80.0) % Lymph % (Auto) 23.2 L (25.0-50.0) % Sac % (Auto) 6.3 (2.0-11.0) % Eos % (Auto) 1.0 (0.0-4.0) % Baso % (Auto) 0.2 (0.2-1.2) % Neut # (Auto) 8.1 H (1.8-7.7) x10^3/uL Lymph # (Auto) 2.7 (1.0-4.8) x10^3/uL Sac # (Auto) 0.7 (0.0-0.8) x10^3/uL Eos # (Auto) 0.1 (0.0-0.5) x10^3/uL Baso # (Auto) 0.0 (0.0-0.2) x10^3/uL Immature Gran # (Auto) 0.02 (0.00-0.07) x10^3/uL PT (9.9-12.5) SEC INR (2.0-3.5) APTT (25.6-32.8) SEC D-Dimer, Quantitative 0.36 (<=0.58) mg/LFEU Sodium 139 (136-145) mmol/L Potassium 4.6 (3.5-5.1) mmol/L Chloride 104 (98-107) mmol/L Carbon Dioxide 29 (21-32) mmol/L Anion Gap 10.6 (5-15) mmol/L BUN 18 (7-18) mg/dL Creatinine 1.1 (0.70-1.30) mg/dL Est Cr Clr Drug Dosing TNP Estimated GFR (MDRD) > 60 Glucose 130 H (70-99) mg/dL Calcium 8.7 (8.5-10.1) mg/dL Corrected Calcium 9.3 (8.5-10.1) mg/dL Total Bilirubin 0.4 (0.2-1.0) mg/dL AST 35 (15-37) U/L ALT 48 (16-63) U/L Alkaline Phosphatase 96 (46-116) U/L Troponin I High Sens 226 H* (<=76) ng/L NT-Pro-B Natriuret Pep 774 H (<=125) pg/mL Total Protein 7.2 (6.4-8.2) g/dL Albumin 3.2 L (3.4-5.0) g/dL Globulin 4.0 Albumin/Globulin Ratio 0.80 SARS CoV-2 RNA Rapid MARAL (NEGATIVE) 07/02/21 07/02/21 07/02/21 Range/Units 22:10 22:10 23:25 WBC (4.0-10.0) x10^3/uL RBC (4.5-6.0) x10^6/uL Hgb (14.0-18.0) g/dL Hct (40.0-52.0) % MCV (78.0-93.0) fL MCH (26.0-32.0) pg MCHC (32.0-36.0) g/dL RDW Coeff of Victor Manuel (10.0-15.0) % Plt Count (130-400) x10^3/uL Immature Gran % (Auto) (0.00-0.43) % Neut % (Auto) (50.0-80.0) % Lymph % (Auto) (25.0-50.0) % Sac % (Auto) (2.0-11.0) % Eos % (Auto) (0.0-4.0) % Baso % (Auto) (0.2-1.2) % Neut # (Auto) (1.8-7.7) x10^3/uL Lymph # (Auto) (1.0-4.8) x10^3/uL Sac # (Auto) (0.0-0.8) x10^3/uL Eos # (Auto) (0.0-0.5) x10^3/uL Baso # (Auto) (0.0-0.2) x10^3/uL Immature Gran # (Auto) (0.00-0.07) x10^3/uL PT 11.0 (9.9-12.5) SEC INR 1.0 L (2.0-3.5) APTT 24.4 L (25.6-32.8) SEC D-Dimer, Quantitative (<=0.58) mg/LFEU Sodium (136-145) mmol/L Potassium (3.5-5.1) mmol/L Chloride (98-107) mmol/L Carbon Dioxide (21-32) mmol/L Anion Gap (5-15) mmol/L BUN (7-18) mg/dL Creatinine (0.70-1.30) mg/dL Est Cr Clr Drug Dosing Estimated GFR (MDRD) Glucose (70-99) mg/dL Calcium (8.5-10.1) mg/dL Corrected Calcium (8.5-10.1) mg/dL Total Bilirubin (0.2-1.0) mg/dL AST (15-37) U/L ALT (16-63) U/L Alkaline Phosphatase (46-116) U/L Troponin I High Sens (<=76) ng/L NT-Pro-B Natriuret Pep (<=125) pg/mL Total Protein (6.4-8.2) g/dL Albumin (3.4-5.0) g/dL Globulin Albumin/Globulin Ratio SARS CoV-2 RNA Rapid MARAL Negative (NEGATIVE) 07/03/21 07/03/21 07/03/21 Range/Units 00:28 06:45 06:45 WBC 10.1 H (4.0-10.0) x10^3/uL RBC 5.49 (4.5-6.0) x10^6/uL Hgb 16.9 (14.0-18.0) g/dL Hct 48.2 (40.0-52.0) % MCV 87.8 (78.0-93.0) fL MCH 30.8 (26.0-32.0) pg MCHC 35.1 (32.0-36.0) g/dL RDW Coeff of Victor Manuel 14.3 (10.0-15.0) % Plt Count 276 (130-400) x10^3/uL Immature Gran % (Auto) (0.00-0.43) % Neut % (Auto) (50.0-80.0) % Lymph % (Auto) (25.0-50.0) % Sac % (Auto) (2.0-11.0) % Eos % (Auto) (0.0-4.0) % Baso % (Auto) (0.2-1.2) % Neut # (Auto) (1.8-7.7) x10^3/uL Lymph # (Auto) (1.0-4.8) x10^3/uL Sac # (Auto) (0.0-0.8) x10^3/uL Eos # (Auto) (0.0-0.5) x10^3/uL Baso # (Auto) (0.0-0.2) x10^3/uL Immature Gran # (Auto) (0.00-0.07) x10^3/uL PT (9.9-12.5) SEC INR (2.0-3.5) APTT (25.6-32.8) SEC D-Dimer, Quantitative (<=0.58) mg/LFEU Sodium (136-145) mmol/L Potassium (3.5-5.1) mmol/L Chloride (98-107) mmol/L Carbon Dioxide (21-32) mmol/L Anion Gap (5-15) mmol/L BUN (7-18) mg/dL Creatinine (0.70-1.30) mg/dL Est Cr Clr Drug Dosing Estimated GFR (MDRD) Glucose (70-99) mg/dL Calcium (8.5-10.1) mg/dL Corrected Calcium (8.5-10.1) mg/dL Total Bilirubin (0.2-1.0) mg/dL AST (15-37) U/L ALT (16-63) U/L Alkaline Phosphatase (46-116) U/L Troponin I High Sens 4851 H* 32448 H* (<=76) ng/L NT-Pro-B Natriuret Pep (<=125) pg/mL Total Protein (6.4-8.2) g/dL Albumin (3.4-5.0) g/dL Globulin Albumin/Globulin Ratio SARS CoV-2 RNA Rapid MARAL (NEGATIVE) 07/03/21 Range/Units 08:50 WBC (4.0-10.0) x10^3/uL RBC (4.5-6.0) x10^6/uL Hgb (14.0-18.0) g/dL Hct (40.0-52.0) % MCV (78.0-93.0) fL MCH (26.0-32.0) pg MCHC (32.0-36.0) g/dL RDW Coeff of Victor Manuel (10.0-15.0) % Plt Count (130-400) x10^3/uL Immature Gran % (Auto) (0.00-0.43) % Neut % (Auto) (50.0-80.0) % Lymph % (Auto) (25.0-50.0) % Sac % (Auto) (2.0-11.0) % Eos % (Auto) (0.0-4.0) % Baso % (Auto) (0.2-1.2) % Neut # (Auto) (1.8-7.7) x10^3/uL Lymph # (Auto) (1.0-4.8) x10^3/uL Sac # (Auto) (0.0-0.8) x10^3/uL Eos # (Auto) (0.0-0.5) x10^3/uL Baso # (Auto) (0.0-0.2) x10^3/uL Immature Gran # (Auto) (0.00-0.07) x10^3/uL PT (9.9-12.5) SEC INR (2.0-3.5) APTT 27.7 (25.6-32.8) SEC D-Dimer, Quantitative (<=0.58) mg/LFEU Sodium (136-145) mmol/L Potassium (3.5-5.1) mmol/L Chloride (98-107) mmol/L Carbon Dioxide (21-32) mmol/L Anion Gap (5-15) mmol/L BUN (7-18) mg/dL Creatinine (0.70-1.30) mg/dL Est Cr Clr Drug Dosing Estimated GFR (MDRD) Glucose (70-99) mg/dL Calcium (8.5-10.1) mg/dL Corrected Calcium (8.5-10.1) mg/dL Total Bilirubin (0.2-1.0) mg/dL AST (15-37) U/L ALT (16-63) U/L Alkaline Phosphatase (46-116) U/L Troponin I High Sens (<=76) ng/L NT-Pro-B Natriuret Pep (<=125) pg/mL Total Protein (6.4-8.2) g/dL Albumin (3.4-5.0) g/dL Globulin Albumin/Globulin Ratio SARS CoV-2 RNA Rapid MARAL (NEGATIVE) Result Diagrams: 07/03/21 06:45 07/02/21 22:10 Sepsis Event Note - Evaluation Sepsis Screening Result: No Definite Risk - Focused Exam Vital Signs: Vital Signs Temp Pulse Pulse Resp BP BP Pulse Ox 07/03/21 08:20 101 H 139/102 H 07/03/21 06:00 95 18 147/92 H 92 L 07/03/21 02:08 36.5 C 98 20 123/82 95 07/03/21 01:35 103 H 18 107/71 96 07/03/21 01:29 100 20 105/69 96 07/03/21 01:20 100 94/53 L 96 07/03/21 01:05 99 16 90/40 L 95 07/03/21 00:50 103 H 19 96/58 L 96 07/03/21 00:30 103 H 16 99/51 L 97 07/03/21 00:14 106 H 23 H 97/67 96 07/02/21 23:59 107 H 24 H 105/69 93 L 07/02/21 23:00 109 H 12 136/105 H 07/02/21 22:32 103/65 07/02/21 22:21 135/105 H 07/02/21 22:15 107 H 17 144/107 H 99 07/02/21 22:11 147/111 H - Problem List & Annotations (1) Acute myocardial infarction SNOMED Code(s): 27609060 Code(s): I21.9 - ACUTE MYOCARDIAL INFARCTION, UNSPECIFIED Status: Acute Priority: High Current Visit: Yes Onset Date: ~07/02/21 Qualifiers: Myocardial infarction type: non-ST elevation myocardial infarction Qualified Code(s): I21.4 - Non-ST elevation (NSTEMI) myocardial infarction Annotation/Comment:: Patient was admitted with NSTEMI, troponin was 226, increased to 4800 at 2 hours, repeat today is 18,000. Is now chest pain free, had aspirin and nitro with success in the ED so nitroglycerin drip started. Heparin bolus and infusion going, intermittant needs for morphine sulfate IVP. worst pain 8/10 now 0/10. Discussed patient with cardiology and critical access hospital transfer center,. No interventional procedures indicated emergently. Suggested stabilization, transfer when bed is available, no cardiac beds available at time or admission in the state. Needs further work up with cardiology. Stable now (2) CHF (congestive heart failure) SNOMED Code(s): 31515126 Code(s): I50.9 - HEART FAILURE, UNSPECIFIED Status: Acute Priority: Medium Current Visit: Yes Qualifiers: Heart failure type: combined systolic and diastolic Heart failure chronicity: chronic Qualified Code(s): I50.42 - Chronic combined systolic (congestive) and diastolic (congestive) heart failure Annotation/Comment:: Continue LAsix, does not appear to be fluid overloaded. no edema or shortness of breath, cardiac diet. limit IV fluids. 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 Needs further evalution at tertiary center. Stable - Problem List Review Problem List Initiated/Reviewed/Updated: Yes - My Orders Last 24 Hours: My Active Orders 07/02/21 22:00 Cardiac Monitoring [RC] 02,06,,,, Nitroglycerin [Nitrostat] 0.4 mg SL Q5M PRN 07/02/21 22:15 Sodium Chloride 0.9% [Normal Saline] 1,000 ml IV ASDIRECTED 07/02/21 22:31 Chest 1V Frontal [CR] Stat 07/02/21 23:00 Heparin Sodium/0.45% NaCl [Heparin 25,000 Units in 1/2 NS 500 ML] 25,000 units in 500 ml IV TITRATE Nitroglycerin/D5W [Nitroglycerin 25 MG/D5W 250 ML] 25 mg in 250 ml IV TITRATE 07/03/21 01:09 Admission Status [Patient Status] [ADT] Routine 07/03/21 02:08 May Shower [RC] .PRN Oxygen Therapy [RC] PRN Up With Assistance [RC] VTE/DVT Education [RC] .PRN Vital Signs [RC] 02,,,,, Resuscitation Status Routine 07/03/21 02:09 Intake and Output [RC] ,18 07/03/21 02:10 Sequential Compression Device [OM.PC] Per Unit Routine 07/03/21 02:15 Acetaminophen [TylenoL] 650 mg PO Q4H PRN Docusate Sodium [Colace] 100 mg PO BID PRN Ondansetron [Zofran ODT] 4 mg PO Q4H PRN Ondansetron [Zofran] 4 mg IV Q4H PRN 07/03/21 02:21 Antiembolic Devices [RC] 07/03/21 02:35 Morphine 4 mg IVPUSH Q1H PRN 07/03/21 Breakfast Heart Healthy Diet [DIET] 07/03/21 08:00 Furosemide [Lasix] 40 mg PO DAILY Nicotine [Habitrol] 14 mg TRDERM DAILY Non-Formulary Medication [NF Drug] 1 each PO BID carvediloL [Coreg] 25 mg PO BIDMEALS 07/03/21 09:32 MAGNESIUM [CHEM] Routine TROPONIN I HIGH SENSITIVITY [CHEM] DAILY 07/03/21 10:00 Heparin Sodium 0 units IVPUSH ASDIRECTED PRN 07/03/21 13:00 PTT,PARTIAL THROMBOPLSTIN TIME [COAG] DAILY 07/03/21 18:00 PTT,PARTIAL THROMBOPLSTIN TIME [COAG] DAILY 07/03/21 20:00 atorvaSTATin [Lipitor] 20 mg PO BEDTIME 07/04/21 09:32 TROPONIN I HIGH SENSITIVITY [CHEM] DAILY 07/04/21 13:00 PTT,PARTIAL THROMBOPLSTIN TIME [COAG] DAILY 07/04/21 18:00 PTT,PARTIAL THROMBOPLSTIN TIME [COAG] DAILY 07/05/21 05:11 COMPREHENSIVE METABOLIC PN,CMP [CHEM] AM PTT,PARTIAL THROMBOPLSTIN TIME [COAG] AM 07/05/21 18:00 PTT,PARTIAL THROMBOPLSTIN TIME [COAG] DAILY 07/06/21 05:11 COMPREHENSIVE METABOLIC PN,CMP [CHEM] AM - Assessment Assessment:: NSTEMI with hypokinesis and cardiomyopathy with chest pain, now improved and stabilized awaiting transfer to cardiology care. - Plan Plan:: continue heparin drip, adjust as needed, continue nitroglycerin, oral medications to include his heart failure and hypertension medications. Await call from transfer center . He is a code level one
--- NOTE | 2021-07-03 14:05 | CR ---
[id number] RAD/RAD Chest Portable EXAM: PORTABLE CHEST INDICATION: CHEST PAIN COMPARISON: None. DISCUSSION: Cardiomegaly with mild central vascular congestion. No effusions. No focal infiltrates are identified. IMPRESSION: 1. Mild congestive heart failure. Williams Terrazas MD 07/03/21 [id number] Thank you for allowing us to participate in the care of your patient.
[2021-07-03] MEDS: Heparin Sodium/0.45% NaCl 25,000 UNITS/500 ML BAG IV SCH (19:17)
[2021-07-03] MEDS: atorvaSTATin 10 MG Tab PO SCH (20:09)
[2021-07-04] MEDS: Heparin Sodium 5,000 Units/ML Vial IVPUSH PRN (01:17)
[2021-07-04] MEDS: Heparin Sodium/0.45% NaCl 25,000 UNITS/500 ML BAG IV SCH ×2 (07:50→20:03)
[2021-07-04] MEDS: Carvedilol 25 MG Tab PO SCH ×2 (07:56→17:36)
[2021-07-04] MEDS: Nicotine 14 MG/24 Hr Patch TRDERM SCH (07:56)
[2021-07-04] MEDS: ENTRESTO PO SCH ×2 (07:57→20:06)
[2021-07-04] MEDS: Furosemide 40 MG Tab PO SCH (07:57)
[2021-07-04] MEDS ORDERED: Furosemide 40 MG/4 ML VIAL IV STA (08:41)
--- NOTE | 2021-07-04 10:06 | PCM.PN ---
- General Info Date of Service: 07/04/21 Admission Dx/Problem (Free Text): nstemi, chf, cardiomyopathy Subjective Update: BEds continue to be full in the state and outside. No transfer availability. Continue to be on wait lists. Patient is feeling, on nitro at 6, no chest pain for 24 hours. A little bit of swelling in the legs. Otherwise is bored but stable and feeling better, just tried. Family anxious to get him to higher level of care. All are understanding of the no bed availability. TRoponin downtrended to 7800 today Functional Status: Reports: Pain Controlled - Review of Systems General: Reports: Fatigue HEENT: Reports: No Symptoms Pulmonary: Reports: No Symptoms Cardiovascular: Reports: No Symptoms Gastrointestinal: Reports: No Symptoms Genitourinary: Reports: No Symptoms Musculoskeletal: Reports: No Symptoms Skin: Reports: No Symptoms Neurological: Reports: No Symptoms Psychiatric: Reports: No Symptoms - Patient Data Vitals - Most Recent: Last Vital Signs Temp 36.2 C 07/04/21 06:11 Pulse 97 07/04/21 07:56 Resp 20 07/04/21 06:11 BP 131/91 H 07/04/21 07:56 Pulse Ox 98 07/04/21 06:11 Weight - Most Recent: 140.069 kg I&O - Last 24 Hours: Intake & Output 07/03/21 07/04/21 07/04/21 22:59 06:59 14:59 Intake Total 600 2426 Balance 600 2426 Lab Results Last 24 Hours: Laboratory Results - last 24 hr 07/03/21 07/03/21 07/03/21 Range/Units 06:45 14:29 19:29 APTT 35.0 H 37.7 H (25.6-32.8) SEC Magnesium 1.9 (1.8-2.4) mg/dL Troponin I High Sens (<=76) ng/L 07/04/21 07/04/21 07/04/21 Range/Units 00:42 06:30 06:30 APTT 36.8 H 55.0 H (25.6-32.8) SEC Magnesium (1.8-2.4) mg/dL Troponin I High Sens 7999 H* (<=76) ng/L Med Orders - Current: Current Medications Acetaminophen (Acetaminophen 325 Mg Tab) 650 mg PO Q4H PRN PRN Reason: Pain (Mild 1-3)/fever Atorvastatin Calcium (Atorvastatin 10 Mg Tab) 20 mg PO BEDTIME [facility] Last Admin: 07/03/21 20:09 Dose: 20 mg Documented by: Carvedilol (Carvedilol 25 Mg Tab) 25 mg PO BIDMEALS [facility] Last Admin: 07/04/21 07:56 Dose: 25 mg Documented by: Docusate Sodium (Docusate Sodium 100 Mg Cap) 100 mg PO BID PRN PRN Reason: Constipation Furosemide (Furosemide 40 Mg Tab) 40 mg PO DAILY [facility] Last Admin: 07/04/21 07:57 Dose: 40 mg Documented by: Heparin Sodium (Porcine) (Heparin Sodium 5,000 Units/Ml Vial) 0 units IVPUSH ASDIRECTED PRN PRN Reason: BOLUS, PER PROTOCOL Last Admin: 07/04/21 01:17 Dose: 1,000 units Documented by: Sodium Chloride (Normal Saline) 1,000 mls @ 999 mls/hr IV ASDIRECTED [facility] Last Admin: 07/02/21 22:15 Dose: 999 mls/hr Documented by: Nitroglycerin/Dextrose (Nitroglycerin 25 Mg/D5w 250 Ml) 25 mg in 250 mls @ 6 mls/hr IV TITRATE [facility]; Protocol Last Infusion: 07/04/21 07:48 Dose: 5 mcg/min, 3 mls/hr Documented by: Heparin Sodium/Sodium Chloride (Heparin 25,000 Units In 1/2 Ns 500 Ml) 25,000 units in 500 mls @ 20 mls/hr IV TITRATE [facility]; Protocol Last Admin: 07/04/21 07:50 Dose: 2,250 units/hr, 45 mls/hr Documented by: Morphine Sulfate (Morphine 4 Mg/Ml Syringe) 4 mg IVPUSH Q1H PRN PRN Reason: Pain (severe 7-10) Last Admin: 07/03/21 12:19 Dose: 4 mg Documented by: Nicotine (Nicotine 14 Mg/24 Hr Patch) 14 mg TRDERM DAILY [facility] Last Admin: 07/04/21 07:56 Dose: 14 mg Documented by: Escobar [id number] (Own Med) 1 each PO BID [facility] Last Admin: 07/04/21 07:57 Dose: 1 each Documented by: Ondansetron HCl (Ondansetron 4 Mg Tab.Dis) 4 mg PO Q4H PRN PRN Reason: nausea, able to take PO Last Admin: 07/04/21 07:56 Dose: 4 mg Documented by: Ondansetron HCl (Ondansetron 4 Mg/2 Ml Sdv) 4 mg IV Q4H PRN PRN Reason: Nausea/Vomiting Discontinued Medications Aspirin (Aspirin 81 Mg Tab.Chew) 324 mg PO ONETIME ONE Stop: 07/02/21 22:01 Last Admin: 07/02/21 22:05 Dose: 324 mg Documented by: Furosemide (Furosemide 40 Mg/4 Ml Vial) 40 mg IV ONETIME STA Stop: 07/04/21 08:42 Last Admin: 07/04/21 08:46 Dose: 40 mg Documented by: Heparin Sodium (Porcine) (Heparin Sodium 5,000 Units/Ml Vial) 4,000 units IVPUSH .BOLUS ONE Stop: 07/02/21 22:57 Last Admin: 07/02/21 23:11 Dose: 4,000 units Documented by: Morphine Sulfate (Morphine 4 Mg/Ml Syringe) 4 mg IVPUSH Q2H PRN PRN Reason: Pain Last Admin: 07/02/21 23:24 Dose: 4 mg Documented by: Nitroglycerin (Nitroglycerin 0.4 Mg Tab.Sl) 0.4 mg SL Q5M PRN PRN Reason: Chest Pain Stop: 07/03/21 22:00 Last Admin: 07/02/21 22:21 Dose: 0.4 mg Documented by: - Exam Quality Assessment: Supplemental Oxygen General: Alert, Oriented HEENT: Pupils Equal, Pupils Reactive, EOMI Neck: Supple Lungs: Clear to Auscultation, Normal Respiratory Effort Cardiovascular: Regular Rate, Regular Rhythm GI/Abdominal Exam: Normal Bowel Sounds, Soft, Non-Tender Back Exam: Normal Inspection Extremities: Normal Inspection, Normal Range of Motion, Pedal Edema (1+ to mid shins) Skin: Warm (no longer diaphoretic) Neurological: No New Focal Deficit Psy/Mental Status: Alert - Patient Data Lab Results Last 24 hrs: Laboratory Results - last 24 hr 07/03/21 07/03/21 07/03/21 Range/Units 06:45 14:29 19:29 APTT 35.0 H 37.7 H (25.6-32.8) SEC Magnesium 1.9 (1.8-2.4) mg/dL Troponin I High Sens (<=76) ng/L 07/04/21 07/04/21 07/04/21 Range/Units 00:42 06:30 06:30 APTT 36.8 H 55.0 H (25.6-32.8) SEC Magnesium (1.8-2.4) mg/dL Troponin I High Sens 7999 H* (<=76) ng/L Result Diagrams: 07/03/21 06:45 07/02/21 22:10 Sepsis Event Note - Evaluation Sepsis Screening Result: No Definite Risk - Focused Exam Vital Signs: Vital Signs Temp Pulse Pulse Resp BP BP Pulse Ox 07/04/21 07:56 97 131/91 H 07/04/21 06:11 36.2 C 99 20 125/84 98 07/04/21 01:50 36.7 C 95 22 H 125/64 98 - Problem List & Annotations (1) Acute myocardial infarction SNOMED Code(s): 53712444 Code(s): I21.9 - ACUTE MYOCARDIAL INFARCTION, UNSPECIFIED Status: Acute Priority: High Current Visit: Yes Onset Date: ~07/02/21 Qualifiers: Myocardial infarction type: non-ST elevation myocardial infarction Qualified Code(s): I21.4 - Non-ST elevation (NSTEMI) myocardial infarction Annotation/Comment:: 07/04 patient is feeling better No chest pain, no diaphoresis, continue on the heparin drip, was difficult to stabilize, but achieved now. troponin is downtrending at 7800. No capabilities of regular troponin. No cardiac beds available. Taking PO well. Will stop the nitrogylcerin drip and monitor for chest pain, acute episode seems to have resolved Patient was admitted with NSTEMI, troponin was 226, increased to 4800 at 2 hours, repeat today is 18,000. Is now chest pain free, had aspirin and nitro with success in the ED so nitroglycerin drip started. Heparin bolus and infusion going, intermittant needs for morphine sulfate IVP. worst pain 8/10 now 0/10. Discussed patient with cardiology and state transfer center,. No interventional procedures indicated emergently. Suggested stabilization, transfer when bed is available, no cardiac beds available at time or admission in the state. Needs further work up with cardiology. Stable now (2) CHF (congestive heart failure) SNOMED Code(s): 07533229 Code(s): I50.9 - HEART FAILURE, UNSPECIFIED Status: Acute Priority: Medium Current Visit: Yes Qualifiers: Heart failure type: combined systolic and diastolic Heart failure chronicity: chronic Qualified Code(s): I50.42 - Chronic combined systolic (congestive) and diastolic (congestive) heart failure Annotation/Comment:: 07/04 patient has a little bit of leg edema, has been getting PO lasix, will give 40 mg lasix iv and see if this helps. No dyspnea or crackles, encourage ambulation Continue LAsix, does not appear to be fluid overloaded. no edema or shortness of breath, cardiac diet. limit IV fluids. 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 Discussion with cardiology DR. Melendez at [facility] as to wishes to continue to await cardiac bed, continue heparin and regular medications. If he meets discharge criteria, has plan to see him immediately in clinic in [place]. Does not suggest discharge for said plan with concern for risk for sudden cardiac , arrthymia. continue current cares, last echo with ejection fraction of 20% in 2018 and PTCA with patient arteries and global hypokinesis in 2016. Needs further evalution at tertiary center. Stable - Problem List Review Problem List Initiated/Reviewed/Updated: Yes - My Orders Last 24 Hours: My Active Orders 07/03/21 10:00 Heparin Sodium 0 units IVPUSH ASDIRECTED PRN 07/03/21 20:00 atorvaSTATin [Lipitor] 20 mg PO BEDTIME 07/04/21 13:00 PTT,PARTIAL THROMBOPLSTIN TIME [COAG] DAILY 07/04/21 18:00 PTT,PARTIAL THROMBOPLSTIN TIME [COAG] DAILY 07/05/21 05:11 COMPREHENSIVE METABOLIC PN,CMP [CHEM] AM PTT,PARTIAL THROMBOPLSTIN TIME [COAG] AM 07/05/21 18:00 PTT,PARTIAL THROMBOPLSTIN TIME [COAG] DAILY 07/06/21 05:11 COMPREHENSIVE METABOLIC PN,CMP [CHEM] AM - Assessment Assessment:: 07/04 NSTEMI with hypokinesis and cardiomyopathy without chest pain. STabilized, awaiting cardiac bed and cardiology referral, high risk for sudden cardiac 07/03/2021 NSTEMI with hypokinesis and cardiomyopathy with chest pain, now improved and stabilized awaiting transfer to cardiology care. - Plan Plan:: 07/04/2021 Continue to be inpatient on heparin, medications, full aspirin a day and push dose lasix as needed. Patient is on hole list for transfer. Call to [facility]. Discussion of the patient in depth with DR. Melendez, station inspector for cardiology. After presenting case, he feels that the patient is high risk for sudden cardiac , arrhythmia and needs a transfer for inpatient versus outpatient work up. No beds are available. Does not suggest discharge and POV transfer to [place]. Discussed continuing heparin for probable cardiac thrombus that is resolving. Was fine to stop nitro as long as chest pain free. If the patient suddenly does not meet inpatient criteria and discharge is eminent, we are instructed to call [facility] one call, Page Dr. Melendez and they will coordinate evaluation immediately after discharge of this facility to his clinic in [place]. No other medication suggestions are given. NEeds further evaluation to determine the course. He did ask for a regular troponin but we no longer have this capability. He did ask for an echocardiogram but he would have to leave the facility and get at the clinic which can not be arranged. Continue cares. Family is aware of this plan if discharge becomes eminent prior to cardiac bed becoming available. 07/03/2021 continue heparin drip, adjust as needed, continue nitroglycerin, oral medications to include his heart failure and hypertension medications. Await call from transfer center . He is a code level one
[2021-07-04] MEDS ORDERED: Aspirin 325 MG Tab.EC PO SCH (10:30)
--- NOTE | 2021-07-04 13:33 | PCM.SN.2 ---
- Free Text/Narrative Note: Accepted patient from Kailyn Pabon PA-C at shift change 07/04/2021 at 10:00 AM. Pt. had been rounded on by her this AM. Was contacted by Dr. Melendez, air conditioning unit assembler at [facility]. He reviewed the EKG that had been faxed to the potential referral facilities and feels that the patient was possibly having a STEMI. He would not, however, accept the patient in transfer at this time, as the patient was now pain free and troponin was trending downward. Conversation took place at 1300 on 07/04/2021. [facility] one call was contacted. Was placed on hold for 16 minutes. Attempted to call back, busy signal. Will attempt to contact other facilities with cardiology services as I am able from ER this afternoon. Time Documentation
[2021-07-04] MEDS: atorvaSTATin 10 MG Tab PO SCH (20:06)
--- NOTE | 2021-07-04 23:00 | PCM.DCSUM1 ---
Discharge Summary - Hospital Course HPI Initial Comments: Pt. admitted to med surg with UT on evening of 07/02/2021. Numerous attempts have been made to transfer pt. to referral facility for cath intervention, as initially the UT was not thought to be a STEMI. Pt. troponin trended upward from admission from 226 to 4851, to 18,811 and is now trending downward to 7999. Pt. was initially experiencing significant chest pain, shortness of breath, lightheadedness, but this has resolved. At this time, pt. is pain-free but is experiencing runs of bradycardia, with rate dipping into the 40s both last night and today. This information was passed along to [facility] recreation activities coordinator who was able to secure a bed for the patient at [facility]. Pt. was accepted by Dr. Covarrubias. Pt. is still currently on a heparin drip. His nitro drip was discontinued as he has been pain-free today. He has not been requiring any pressors at this time. - Discharge Data Discharge Date: 07/04/21 Discharge Disposition: Home, Self-Care 01 Condition: Fair - Referral to Home Health Primary Care Physician: Timothy Suarez MD - Discharge Diagnosis/Problem(s) (1) Acute myocardial infarction SNOMED Code(s): 12970846 ICD Code: I21.9 - ACUTE MYOCARDIAL INFARCTION, UNSPECIFIED Status: Acute Priority: High Current Visit: Yes Onset Date: ~07/02/21 Problem Details: 07/04 patient is feeling better No chest pain, no diaphoresis, continue on the heparin drip, was difficult to stabilize, but achieved now. troponin is downtrending at 7800. No capabilities of regular troponin. No cardiac beds available. Taking PO well. Will stop the nitrogylcerin drip and monitor for chest pain, acute episode seems to have resolved Patient was admitted with NSTEMI, troponin was 226, increased to 4800 at 2 hours, repeat today is 18,000. Is now chest pain free, had aspirin and nitro with success in the ED so nitroglycerin drip started. Heparin bolus and infusion going, intermittant needs for morphine sulfate IVP. worst pain 8/10 now 0/10. Discussed patient with cardiology and [facility] transfer center,. No interventional procedures indicated emergently. Suggested stabilization, transfer when bed is available, no cardiac beds available at time or admission in the state. Needs further work up with cardiology. Stable now Qualifiers: Myocardial infarction type: non-ST elevation myocardial infarction Qualified Code(s): I21.4 - Non-ST elevation (NSTEMI) myocardial infarction - Discharge Plan Home Medications: Home Meds Furosemide 40 mg PO DAILY 07/03/21 [History] Sacubitril/Valsartan [Entresto 97 mg-103 mg Tablet] 1 each PO BID 07/03/21 [History] atorvaSTATin [Lipitor] 20 mg PO BEDTIME 07/03/21 [History] carvediloL [Carvedilol] 25 mg PO BIDMEALS 07/03/21 [History] Forms: ED Department Discharge, Interfacility Transfer EMTALA Referrals: PCP,None [Ordering Only Provider] - - Discharge Summary/Plan Comment DC Time >30 min.: Yes Total # of Minutes for Discharge Time: 60 Discharge Summary/Plan Comment: Pt. will be transferred to [facility]. Pt. [facility] be transported via [facility] ground ambulance. Continue IV heparin drip. Discussed findings with patient and family who agree with plan of care. EMTALA form and other required documentation completed. - General Info Functional Status: Reports: Pain Controlled - Review of Systems General: Reports: No Symptoms HEENT: Reports: No Symptoms Pulmonary: Reports: No Symptoms Cardiovascular: Reports: Dyspnea on Exertion. Denies: Chest Pain, Palpitations, Orthopnea Gastrointestinal: Reports: No Symptoms Genitourinary: Reports: No Symptoms Musculoskeletal: Reports: No Symptoms Skin: Reports: No Symptoms Neurological: Reports: No Symptoms Psychiatric: Reports: No Symptoms - Patient Data Vitals - Most Recent: Last Vital Signs Temp 36.3 C 07/04/21 21:41 Pulse 78 07/04/21 21:41 Resp 18 07/04/21 21:41 BP 111/65 07/04/21 21:41 Pulse Ox 92 L 07/04/21 21:41 Weight - Most Recent: 125 kg I&O - Last 24 hours: Intake & Output 07/04/21 07/04/21 07/04/21 06:59 14:59 22:59 Intake Total 2426 360 1160 Balance 2426 360 1160 Lab Results - Last 24 hrs: Laboratory Results - last 24 hr 07/04/21 07/04/21 07/04/21 Range/Units 00:42 06:30 06:30 APTT 36.8 H 55.0 H (25.6-32.8) SEC Troponin I High Sens 7999 H* (<=76) ng/L 07/04/21 07/04/21 07/04/21 Range/Units 10:58 16:05 20:27 APTT 59.7 H 49.9 H 44.9 H (25.6-32.8) SEC Troponin I High Sens (<=76) ng/L Med Orders - Current: Current Medications Acetaminophen (Acetaminophen 325 Mg Tab) 650 mg PO Q4H PRN PRN Reason: Pain (Mild 1-3)/fever Aspirin (Aspirin 325 Mg Tab.Ec) 325 mg PO DAILY [facility] Last Admin: 07/04/21 10:54 Dose: 325 mg Documented by: Atorvastatin Calcium (Atorvastatin 10 Mg Tab) 20 mg PO BEDTIME [facility] Last Admin: 07/04/21 20:06 Dose: 20 mg Documented by: Carvedilol (Carvedilol 25 Mg Tab) 25 mg PO BIDMEALS [facility] Last Admin: 07/04/21 17:36 Dose: 25 mg Documented by: Docusate Sodium (Docusate Sodium 100 Mg Cap) 100 mg PO BID PRN PRN Reason: Constipation Furosemide (Furosemide 40 Mg Tab) 40 mg PO DAILY [facility] Last Admin: 07/04/21 07:57 Dose: 40 mg Documented by: Heparin Sodium (Porcine) (Heparin Sodium 5,000 Units/Ml Vial) 0 units IVPUSH ASDIRECTED PRN PRN Reason: BOLUS, PER PROTOCOL Last Admin: 07/04/21 01:17 Dose: 1,000 units Documented by: Sodium Chloride (Normal Saline) 1,000 mls @ 999 mls/hr IV ASDIRECTED [facility] Last Admin: 07/02/21 22:15 Dose: 999 mls/hr Documented by: Heparin Sodium/Sodium Chloride (Heparin 25,000 Units In 1/2 Ns 500 Ml) 25,000 units in 500 mls @ 20 mls/hr IV TITRATE [facility]; Protocol Last Admin: 07/04/21 20:03 Dose: 2,000 units/hr, 40 mls/hr Documented by: Morphine Sulfate (Morphine 4 Mg/Ml Syringe) 4 mg IVPUSH Q1H PRN PRN Reason: Pain (severe 7-10) Last Admin: 07/03/21 12:19 Dose: 4 mg Documented by: Nicotine (Nicotine 14 Mg/24 Hr Patch) 14 mg TRDERM DAILY [facility] Last Admin: 07/04/21 07:56 Dose: 14 mg Documented by: Escobar [id number] (Own Med) 1 each PO BID [facility] Last Admin: 07/04/21 20:06 Dose: 1 each Documented by: Ondansetron HCl (Ondansetron 4 Mg Tab.Dis) 4 mg PO Q4H PRN PRN Reason: nausea, able to take PO Last Admin: 07/04/21 07:56 Dose: 4 mg Documented by: Ondansetron HCl (Ondansetron 4 Mg/2 Ml Sdv) 4 mg IV Q4H PRN PRN Reason: Nausea/Vomiting Discontinued Medications Aspirin (Aspirin 81 Mg Tab.Chew) 324 mg PO ONETIME ONE Stop: 07/02/21 22:01 Last Admin: 07/02/21 22:05 Dose: 324 mg Documented by: Furosemide (Furosemide 40 Mg/4 Ml Vial) 40 mg IV ONETIME STA Stop: 07/04/21 08:42 Last Admin: 07/04/21 08:46 Dose: 40 mg Documented by: Heparin Sodium (Porcine) (Heparin Sodium 5,000 Units/Ml Vial) 4,000 units IVPUSH .BOLUS ONE Stop: 07/02/21 22:57 Last Admin: 07/02/21 23:11 Dose: 4,000 units Documented by: Nitroglycerin/Dextrose (Nitroglycerin 25 Mg/D5w 250 Ml) 25 mg in 250 mls @ 6 mls/hr IV TITRATE [facility]; Protocol Last Infusion: 07/04/21 07:48 Dose: 5 mcg/min, 3 mls/hr Documented by: Morphine Sulfate (Morphine 4 Mg/Ml Syringe) 4 mg IVPUSH Q2H PRN PRN Reason: Pain Last Admin: 07/02/21 23:24 Dose: 4 mg Documented by: Nitroglycerin (Nitroglycerin 0.4 Mg Tab.Sl) 0.4 mg SL Q5M PRN PRN Reason: Chest Pain Stop: 07/03/21 22:00 Last Admin: 07/02/21 22:21 Dose: 0.4 mg Documented by: - Exam Quality Assessment: Reports: Supplemental Oxygen General: Reports: Alert, Oriented Lungs: Reports: Crackles Cardiovascular: Reports: Regular Rate, Murmurs GI/Abdominal Exam: Normal Bowel Sounds, Soft, Non-Tender, No Organomegaly, No Distention, No Mass (Male) Exam: Deferred Rectal (Males) Exam: Deferred Back Exam: Reports: Normal Inspection, Full Range of Motion Extremities: Normal Inspection, Normal Range of Motion, Non-Tender, No Pedal Edema Skin: Reports: Warm, Dry, Intact Psy/Mental Status: Reports: Alert, Normal Affect, Normal Mood
== END 2021-07-04 23:35 | disposition home or self-care (01) | DRG 281 ==
LOC: VM.ED 21:53 → VM.MS 07-03 02:00
PROVIDERS: ADMIT Physician Assistant; ATTEND Physician Assistant
DX: I21.4 Non-ST elevation (NSTEMI) myocardial infarction (principal); I50.42 Chronic combined systolic (congestive) and diastolic (congestive) heart failure; F17.210 Nicotine dependence, cigarettes, uncomplicated; I11.0 Hypertensive heart disease with heart failure; E78.00 Pure hypercholesterolemia, unspecified; Z79.899 Other long term (current) drug therapy; B33.24 Viral cardiomyopathy; Z20.822 Contact with and (suspected) exposure to COVID-19
CPT/HCPCS: 36415; 71045; 80053; 83735; 83880; 84484; 85025; 85027; 85379; 85610; 85730; 93005; 93010; 96365; 96366; 96375; 99223; 99233; 99239; 99285-25; A9270-GY; J1644; J1940; J2270; J3490; J7030; U0002

== ENCOUNTER 2023-10-03 19:58 | Inpatient (IN) | payer MEDICAID ==
[2023-10-03] MEDS ORDERED: Sodium Chloride 0.9% 10 ML Syringe FLUSH PRN (19:59)
[2023-10-03 20:26] LABS: BASOPHILS PERCENT AUTO 0.2 % (0.2-1.2); EOSINOPHILS ABSOLUTE AUTO 0.1 x10^3/uL (0.0-0.5); HEMATOCRIT 51.5 % (40.0-52.0); HEMOGLOBIN 17.1 g/dL (14.0-18.0); IMMATURE GRAN ABSOLUTE AUTO 0.01 x10^3/uL (0.00-0.07); LYMPHOCYTES ABSOLUTE AUTO 1.8 x10^3/uL (1.0-4.8); LYMPHOCYTES PERCENT AUTO 14.6 % (25.0-50.0); MEAN CORPUSCULAR HEMOGLOBIN 29.3 pg (26.0-32.0); MEAN CORPUSCULAR HGB CONC 33.2 g/dL (32.0-36.0); MEAN CORPUSCULAR VOLUME 88.3 fL (78.0-93.0); MONOCYTES ABSOLUTE AUTO 0.7 x10^3/uL (0.0-0.8); MONOCYTES PERCENT AUTO 6.1 % (2.0-11.0); NEUTROPHILS ABSOLUTE AUTO 9.5 x10^3/uL (1.8-7.7); PLATELET COUNT,PLT 290 x10^3/uL (130-400); RED BLOOD CELL COUNT 5.83 x10^6/uL (4.5-6.0); WHITE BLOOD CELL COUNT,WBC 12.2 x10^3/uL (4.0-10.0)
[2023-10-03 20:41] LABS: INR 1.3 (0.9-1.1); PROTHROMBIN TIME 13.8 SEC (9.5-12.2); PTT,PARTIAL THROMBOPLSTIN TIME 25.4 SEC (23.6-33.6)
[2023-10-03 20:45] LABS: LACTIC ACID 1.5 mmol/L (0.4-2.0)
[2023-10-03 20:52] LABS: A/G RATIO 0.76; ALANINE AMINOTRANSFERASE,ALT 43 U/L (16-63); ALBUMIN 3.2 g/dL (3.4-5.0); ALKALINE PHOSPHATASE 121 U/L (46-116); ASPARTATE AMNIOTRANSFERASE,AST 33 U/L (15-37); BILIRUBIN TOTAL 0.4 mg/dL (0.2-1.0); BLOOD UREA NITROGEN,BUN 26 mg/dL (7-18); CALCIUM 8.9 mg/dL (8.5-10.1); CARBON DIOXIDE,CO2 28 mmol/L (21-32); CHLORIDE,CL 103 mmol/L (98-107); CREATININE 1.4 mg/dL (0.70-1.30); GLUCOSE RANDOM 123 mg/dL (70-99); MAGNESIUM 1.7 mg/dL (1.8-2.4); PROTEIN TOTAL,TP 7.4 g/dL (6.4-8.2); SODIUM,NA 141 mmol/L (136-145); TSH ULTRASENSITIVE 2.304 uIU/mL (0.358-3.74)
[2023-10-03 20:53] LABS: ESTIMATED GFR 61 mL/min (>=60)
[2023-10-03] MEDS ORDERED: Iopamidol 755 Mg/ML 100 ML Bottle IVPUSH ONE (21:12)
[2023-10-03] MEDS ORDERED: Sodium Chloride 0.9% 1,000 ML IV SCH (21:15)
[2023-10-03 21:23] LABS: AMPHETAMINES SCREEN, URINE POSITIVE (NEGATIVE); BARBITURATE SCREEN,URINE NEGATIVE (NEGATIVE); BENZODIAZEPINES SCREEN,URINE NEGATIVE (NEGATIVE); BUPRENORPHINE SCREEN,URINE NEGATIVE (NEGATIVE); COCAINE METABOLITES,URINE NEGATIVE (NEGATIVE); METHADONE SCREEN, URINE NEGATIVE (NEGATIVE); METHAMPHETAMINE SCREEN, URINE POSITIVE (NEGATIVE); OXYCODONE SCREEN,URINE NEGATIVE (NEGATIVE); PCP SCREEN,URINE NEGATIVE (NEGATIVE); THC SCREEN,URINE 50 NG/ML POSITIVE (NEGATIVE)
[2023-10-04] MEDS: Carvedilol 25 MG Tab PO SCH ×2 (08:56→18:18)
[2023-10-04] MEDS ORDERED: Furosemide 40 MG Tab PO SCH (09:00)
[2023-10-04] MEDS ORDERED: Empagliflozin 10 MG Tab PO SCH (09:00)
[2023-10-04] MEDS ORDERED: Aspirin 81 MG Tab.EC PO SCH (09:00)
[2023-10-04] MEDS ORDERED: Sacubitril/Valsartan 24 MG-26 MG Tab PO SCH (10:30)
[2023-10-04] MEDS ORDERED: atorvaSTATin 40 MG Tab PO SCH (21:00)
== END 2023-10-04 12:50 | disposition home or self-care (01) | DRG 65 ==
LOC: VM.ED 19:58 → VM.MS 22:47
PROVIDERS: ADMIT Physician Assistant; ATTEND Family Medicine
DX: I63.49 Cerebral infarction due to embolism of other cerebral artery (principal); I42.9 Cardiomyopathy, unspecified; I50.42 Chronic combined systolic (congestive) and diastolic (congestive) heart failure; E11.9 Type 2 diabetes mellitus without complications; R47.01 Aphasia; I11.0 Hypertensive heart disease with heart failure; R29.707 NIHSS score 7; F17.210 Nicotine dependence, cigarettes, uncomplicated; F15.10 Other stimulant abuse, uncomplicated; R47.81 Slurred speech; E78.00 Pure hypercholesterolemia, unspecified; I25.2 Old myocardial infarction; Z98.890 Other specified postprocedural states; Z79.82 Long term (current) use of aspirin; Z79.899 Other long term (current) drug therapy
CPT/HCPCS: 36415; 70450; 70496; 80053; 80305-QW; 82947; 83605; 83735; 84443; 84484; 85025; 85610; 85730; 93005; 93010; 96360; 99284; 99285-25; A9270-GY; J3490; J7030; Q9967

== ENCOUNTER 2024-10-16 08:12 | Emergency (ER) | payer MEDICAID ==
[2024-10-16 08:35] LABS: BASOPHILS PERCENT AUTO 0.2 % (0.2-1.2); EOSINOPHILS ABSOLUTE AUTO 0.3 x10^3/uL (0.0-0.5); EOSINOPHILS PERCENT AUTO 3.4 % (0.0-4.0); HEMATOCRIT 50.6 % (40.0-52.0); HEMOGLOBIN 18.1 g/dL (14.0-18.0); IMMATURE GRAN ABSOLUTE AUTO 0.01 x10^3/uL (0.00-0.07); LYMPHOCYTES ABSOLUTE AUTO 1.8 x10^3/uL (1.0-4.8); LYMPHOCYTES PERCENT AUTO 20.8 % (25.0-50.0); MEAN CORPUSCULAR HEMOGLOBIN 31.3 pg (26.0-32.0); MEAN CORPUSCULAR HGB CONC 35.8 g/dL (32.0-36.0); MEAN CORPUSCULAR VOLUME 87.5 fL (78.0-93.0); MONOCYTES PERCENT AUTO 11.3 % (2.0-11.0); NEUTROPHILS ABSOLUTE AUTO 5.7 x10^3/uL (1.8-7.7); NEUTROPHILS PERCENT AUTO 64.2 % (50.0-80.0); PLATELET COUNT,PLT 287 x10^3/uL (130-400); RED BLOOD CELL COUNT 5.78 x10^6/uL (4.5-6.0); WHITE BLOOD CELL COUNT,WBC 8.8 x10^3/uL (4.0-10.0)
[2024-10-16 08:59] LABS: A/G RATIO 0.84; ALBUMIN 3.2 g/dL (3.4-5.0); BILIRUBIN TOTAL 0.6 mg/dL (0.2-1.0); CALCIUM 9.1 mg/dL (8.5-10.1); CREATININE 1.4 mg/dL (0.70-1.30); EST CRCL DRUG DOSING (CG) 67.75 mL/min; POTASSIUM,K 3.6 mmol/L (3.5-5.1); TSH ULTRASENSITIVE 3.934 uIU/mL (0.358-3.74)
[2024-10-16 09:00] LABS: ANION GAP 12.6 mmol/L (5-15)
== END 2024-10-16 09:56 | disposition home or self-care (01) ==
LOC: VM.ED 08:12
DX: I95.1 Orthostatic hypotension (principal); I11.0 Hypertensive heart disease with heart failure; I50.9 Heart failure, unspecified; E78.00 Pure hypercholesterolemia, unspecified; F17.210 Nicotine dependence, cigarettes, uncomplicated; Z79.899 Other long term (current) drug therapy; Z79.84 Long term (current) use of oral hypoglycemic drugs; Z79.82 Long term (current) use of aspirin
CPT/HCPCS: 36415; 80053; 83735; 84443; 84484; 85025; 93005; 93010; 99284; 99285